=== PATIENT | female | born 1970 | race American Indian/Alaskan Native ===

== ENCOUNTER → 2021-02-13 | Outpatient (CLI) | payer BC ==
[~2021-02-13] MED LIST: Budeprion Xl300 MG PO; CYCL10 PO; DOCU100 PO; HYDACE5 PO; IBUP800 PO; METPHE20CR PO; ONDA4 PO; OXYACE5T PO; RANI150 PO; ZOLP5 PO
[2021-02-14 11:18] LABS: Candida species (DNA Probe) Negative (NEGATIVE); G. vaginalis (DNA Probe) Negative (NEGATIVE); T. vaginalis (DNA Probe) Negative (NEGATIVE)
== END ==
LOC: LAB 18:50 → LAB SHORT 18:50
PROVIDERS: Obstetrics & Gynecology
DX: N89.8 Other specified noninflammatory disorders of vagina (principal)
CPT/HCPCS: 87480; 87510; 87660